=== PATIENT | male | born 1985 | race Caucasian/White ===

== ENCOUNTER 2019-08-22 06:57 | Emergency (ER) | payer BC ==
--- NOTE | 2019-08-22 07:42 | EDM.PDOC ---
ED HPI GENERAL MEDICAL PROBLEM - General Chief Complaint: Chest Pain Stated Complaint: CHEST PAIN Time Seen by Provider: 08/22/19 07:42 - History of Present Illness INITIAL COMMENTS - FREE TEXT/NARRATIVE: 34-year-old male presents the emergency room with chest pain. This started this morning about 1 AM he had an episode that lasted about 30 minutes patient states he had pulsating sensation with the discomfort. This lasted about 30 minutes. The patient cannot go to sleep afterwards. He had another episode around 530 this morning this episode was shorter. This was not associated with any nausea vomiting breathing difficulties or shortness of breath. The pain did not radiate however he describes it is a shooting pain but was substernal only. The patient has had reflux in the past but this is much different. Patient does not have any active medical problems the patient denies illicit drug use. He does not use alcohol and he does not smoke family history reveals a grandfather that may have had a rhythm disorder no history of MIs or strokes. Chest Pain Score (Numeric/FACES): 3 - Related Data Allergies Allergy/AdvReac Type Severity Reaction Status Date / Time No Known Allergies Allergy Verified 08/22/19 07:15 Home Meds: Home Meds . [No Known Home Meds] 08/22/19 [History] Past Medical History - Past Health History Medical/Surgical History: Denies Medical/Surgical History Social & Family History - Tobacco Use Smoking Status *Q: Never Smoker ED ROS GENERAL - Review of Systems Review Of Systems: See Below Constitutional: Reports: No Symptoms HEENT: Reports: No Symptoms Respiratory: Reports: No Symptoms Cardiovascular: Reports: Chest Pain, Palpitations (Possible) Endocrine: Reports: No Symptoms GI/Abdominal: Reports: No Symptoms : Reports: No Symptoms Musculoskeletal: Reports: No Symptoms Skin: Reports: No Symptoms Neurological: Reports: No Symptoms Psychiatric: Reports: No Symptoms Hematologic/Lymphatic: Reports: No Symptoms Immunologic: Reports: No Symptoms ED EXAM, GENERAL - Physical Exam Exam: See Below Exam Limited By: No Limitations General Appearance: Alert, No Apparent Distress Head: Atraumatic, Normocephalic Neck: Normal Inspection, Supple, Non-Tender, Full Range of Motion. No: Lymphadenopathy (L), Lymphadenopathy (R) Respiratory/Chest: No Respiratory Distress, Lungs Clear, Normal Breath Sounds Cardiovascular: Regular Rate, Rhythm, No Edema, No Murmur GI/Abdominal: Normal Bowel Sounds, Soft, Non-Tender Back Exam: Normal Inspection, CVA Tenderness (L), CVA Tenderness (R) Neurological: Alert, Oriented, Normal Cognition EKG INTERPRETATION EKG Date: 08/22/19 Rhythm: NSR [place]: Normal P-Wave: Present QRS: Normal ST-T: Other (Specific nondiagnostic changes without J-point elevation showed EKG the patient was pain free has QRS was small compared to his T wave in lead V3 and his EKG was rechecked this is not changed with the patient is remained symptom-free the patient also has T wave inversion in aVL this was noted on both EKGs.) QT: Normal Comparison: NA - No Prior EKG Course - Vital Signs Last Recorded V/S: Last Vital Signs Temp 36.2 C 08/22/19 07:12 Pulse 64 08/22/19 07:23 Resp 16 08/22/19 07:12 BP 119/89 08/22/19 07:12 Pulse Ox 100 08/22/19 07:23 - Orders/Labs/Meds Orders: Active Orders 24 hr Category Date Time Status EKG 12 Lead [EKG Documentation Completion] [RC] STAT Care 08/22/19 07:23 Active EKG Documentation Completion [RC] STAT Care 08/22/19 08:40 Active Holter Monitor 24 Hours [RC] .PRN Care 08/22/19 09:09 Active Labs: Laboratory Tests 08/22/19 08/22/19 Range/Units 08:13 08:13 WBC 4.64 (4.23-9.07) K/mm3 RBC 4.41 L (4.63-6.08) M/mm3 Hgb 13.9 (13.7-17.5) gm/dl Hct 40.5 (40.1-51.0) % MCV 91.8 (79.0-92.2) fl MCH 31.5 (25.7-32.2) pg MCHC 34.3 (32.2-35.5) g/dl RDW Std Deviation 40.9 (35.1-43.9) fL Plt Count 185 (163-337) K/mm3 MPV 9.5 (9.4-12.3) fl Neutrophils % (Manual) 53 (40-60) % Band Neutrophils % 0 (0-10) % Lymphocytes % (Manual) 33 (20-40) % Atypical Lymphs % 0 % Monocytes % (Manual) 13 H (2-10) % Eosinophils % (Manual) 1 (0.8-7.0) % Basophils % (Manual) 0 L (0.2-1.2) Platelet Estimate Adequate RBC Morph Comment Normal Sodium 138 (136-145) mEq/L Potassium 3.9 (3.5-5.1) mEq/L Chloride 103 (98-107) mEq/L Carbon Dioxide 26 (21-32) mEq/L Anion Gap 12.9 (5-15) BUN 16 (7-18) mg/dL Creatinine 1.0 (0.7-1.3) mg/dL Est Cr Clr Drug Dosing 112.26 mL/min Estimated GFR (MDRD) > 60 (>60) mL/min BUN/Creatinine Ratio 16.0 (14-18) Glucose 87 (74-106) mg/dL Calcium 9.0 (8.5-10.1) mg/dL Magnesium 2.0 (1.8-2.4) mg/dl Total Bilirubin 1.0 (0.2-1.0) mg/dL AST 16 (15-37) U/L ALT 27 (16-63) U/L Alkaline Phosphatase 47 (46-116) U/L Troponin I < 0.017 (0.00-0.056) ng/mL Total Protein 7.2 (6.4-8.2) g/dl Albumin 3.9 (3.4-5.0) g/dl Globulin 3.3 gm/dL Albumin/Globulin Ratio 1.2 (1-2) Meds: Medications Discontinued Medications Generic Name Dose Route Start Last Admin Trade Name Freq PRN Reason Stop Dose Admin Aspirin 324 mg 08/22/19 07:51 08/22/19 08:04 Aspirin PO 08/22/19 07:52 324 mg ONETIME ONE Administration - Re-Assessments/Exams Free Text/Narrative Re-Assessment/Exam: 08/22/19 09:14 Evaluation chest x-ray is unremarkable EKG shows some nonspecific nondiagnostic ST changes that are stable with tracing #1 and tracing #2 done roughly an hour apart he does have an elevated T wave in V3 but this is stable without associated increase in EKG findings to suggest ischemia. He has inverted T waves in aVL this shows up on both of her tracings but it does not look like he is developing inferior acute changes. The patient has a pulsating nature to his pain has a hard time describing it we will go ahead and check a Holter monitor on him and have him follow-up in the clinic he is also advised not to drive until he knows for sure he is doing much better. Some of the symptoms could be gastrointestinal we will have him start famotidine and will have him start daily aspirin patient will follow-up in the hospital clinic after getting his Holter done Departure - Departure Time of Disposition: 09:16 Disposition: Home, Self-Care 01 Clinical Impression: Chest pain Instructions: Nonspecific Chest Pain, [id number] Referrals: PCP,None [Ordering Only Provider] - Forms: ED Department Discharge Additional Instructions: Return to the emergency room with any questions problems or worsening symptoms. Follow-up in the hospital clinic tomorrow afternoon at 1:30 show up early for paperwork. [id number] Return the Holter monitor as directed. Do not drive until this issue is resolved. Take a baby aspirin 81 mg enteric-coated 1 daily. Also peanut picker some famotidine , this is the generic for Pepcid take 1 twice daily for 4 days and then 1 daily thereafter. Sepsis Event Note - Evaluation Sepsis Screening Result: No Definite Risk - Focused Exam Vital Signs: Vital Signs Temp Pulse Pulse Resp BP Pulse Ox 08/22/19 07:23 64 100 08/22/19 07:12 36.2 C 70 16 119/89 100 Date Exam was Performed: 08/22/19 Time Exam was Performed: 09:30 - My Orders Last 24 Hours: My Active Orders 08/22/19 07:23 EKG 12 Lead [EKG Documentation Completion] [RC] STAT 08/22/19 08:40 EKG Documentation Completion [RC] STAT 08/22/19 09:09 Holter Monitor 24 Hours [RC] .PRN - Assessment/Plan Last 24 Hours: My Active Orders 08/22/19 07:23 EKG 12 Lead [EKG Documentation Completion] [RC] STAT 08/22/19 08:40 EKG Documentation Completion [RC] STAT 08/22/19 09:09 Holter Monitor 24 Hours [RC] .PRN
[2019-08-22] MEDS ORDERED: Aspirin 81 MG Tab.Chew PO ONE (07:51)
--- NOTE | 2019-08-22 08:42 | CR ---
Chest: Portable view of the chest was obtained. Comparison: No prior chest imaging. Heart size and mediastinum are normal. Lungs are clear with no acute parenchymal change. Bony structures are grossly intact. Impression: 1. Nothing acute is appreciated on portable chest x-ray. Diagnostic code #1 This report was dictated in [place] Standard Time
== END 2019-08-22 09:31 | disposition home or self-care (01) ==
LOC: JD.ED 06:57
DX: R07.2 Precordial pain (principal)
CPT/HCPCS: 36415; 71045; 80053; 83735; 84484; 85007; 85027; 93005; 93225; 93226; 99285; A9270; 93010; 99283